=== PATIENT | female | born 1985 | race Caucasian/White ===

== ENCOUNTER 2018-07-01 01:23 | Emergency (ER) | payer SELFPAY ==
[2018-07-01 02:05] LABS: Urine Bacteria <20 /HPF (<20); Urine Culture Reflex Order NOT NEEDED; Urine RBC NONE SEEN /HPF (NONE SEEN)
--- NOTE | 2018-07-01 02:14 | ER ---
Nurse's Notes [facility] Name: Dulce Bird Age: 33 yrs Sex: Female : 1985 Arrival Date: 07/01/2018 Time: 01:25 Bed 20 Private MD: Diagnosis: Vaginitis, vulvitis and vulvovaginitis in diseases classified elsewhere Presentation: 07/01 01:36 Presenting complaint: Patient states: she left a tampon in for possibly two months and bb just took it out states now she has a "pretty bad discharge" and is worried about toxic shock syndrome. Transition of care: patient was not received from another setting of care. Onset of symptoms is unknown. Risk Assessment: Do you want to hurt yourself or someone else? Patient reports no desire to harm self or others. Initial Sepsis Screen: Does the patient meet any 2 criteria? No. Patient's initial sepsis screen is negative. Does the patient have a suspected source of infection? No. Patient's initial sepsis screen is negative. Care prior to arrival: None. 01:36 Method Of Arrival: Ambulatory bb 01:36 Acuity: HEATHER 3 bb Triage Assessment: 02:04 General: Appears in no apparent distress. Behavior is calm, cooperative. Pain: Denies ak1 pain. EENT: No signs and/or symptoms were reported regarding the EENT system. Neuro: No deficits noted. Cardiovascular: No deficits noted. Respiratory: No deficits noted. GI: No signs and/or symptoms were reported involving the gastrointestinal system. : Reports discharge, from vagina that is since today after finding a tampon that has been in the vagina for "2 months" pt refused vaginal/pelvic exam. Derm: No signs and/or symptoms reported regarding the dermatologic system. Musculoskeletal: No signs and/or symptoms reported regarding the musculoskeletal system. 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 - Social history:: Smoking status: Patient uses tobacco products, smokes one-half pack cigarettes per day, Patient uses alcohol, weekly. Patient/guardian denies using street drugs. - Ebola Screening: : No symptoms or risks identified at this time. Screenin:03 Abuse screen: Denies threats or abuse. Denies injuries from another. Nutritional ak1 screening: No deficits noted. Tuberculosis screening: No symptoms or risk factors identified. Fall Risk None identified. Vital Signs: 01:38 BP 133 / 94; Pulse 85; Resp 16 S; Temp 98.8(O); Pulse Ox 100% on R/A; Weight 77.11 kg bb (R); Height 5 ft. 8 in. (172.72 cm) (R); Pain 3/10; 01:38 Body Mass Index 25.85 (77.11 kg, 172.72 cm) bb ED Course: 01:25 Patient arrived in ED. al2 01:31 Eriberto Orantes PA is PHCP. cp 01:31 Calin Raygoza MD is Attending Physician. cp 01:31 Christy Coleman RN is Primary Nurse. ak1 01:37 Triage completed. bb 01:38 Arm band placed on Patient placed in an exam room, on a stretcher, on pulse oximetry. bb 02:03 Patient has correct armband on for positive identification. Bed in low position. Call ak1 light in reach. Side rails up X 1. Pulse ox on. NIBP on. 02:07 No provider procedures requiring assistance completed. ak1 02:11 Urine --Ancillary (enter results) Sent. ds4 02:11 Urine Dipstick--Ancillary (enter results) Sent. ds4 02:12 Mook Ramires MD is Referral Physician. cp 02:20 Patient did not have IV access during this emergency room visit. ak1 Administered Medications: No medications were administered Outcome: 02:13 Discharge ordered by . cp 02:18 Discharged to home ambulatory. ak1 02:18 Condition: good 02:18 Discharge instructions given to patient, Instructed on discharge instructions, follow up and referral plans. no drinking with medication, no driving heavy equipment, medication usage, safe sex practices, control, Demonstrated understanding of instructions, follow-up care, medications, Prescriptions given X 2. 02:22 Patient left the ED. ak1 Signatures: Nhi Nava RN RN bb Vernon Ronquillo ds4 Christy Coleman RN RN ak1 Eriberto Orantes PA PA cp Love, Angelica al2
--- NOTE | 2018-07-01 02:14 | EDPHYS ---
Physician Documentation [facility] Name: Dulce Bird Age: 33 yrs Sex: Female : 1985 Arrival Date: 07/01/2018 Time: 01:25 Bed 20 Private MD: ED Physician Calin Raygoza HPI: 07/01 01:55 This 33 yrs old Female presents to ER via Ambulatory with complaints of TSS. cp 01:55 The patient presents with vaginal discharge, that is a moderate amount of purulent cp discharge. Onset: The symptoms/episode began/occurred gradually. Associated signs and symptoms: Pertinent negatives: constipation, diarrhea, fever, vaginal bleeding, abdominal pain, concern for STD. Severity of symptoms: in the emergency department the symptoms are unchanged, despite home interventions. 01:55 Patient reports removing tampon tonight and is unsure of when it was placed. Patient cp reports tampon was possibly inserted 2 months ago. 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 - Social history:: Smoking status: Patient uses tobacco products, smokes one-half pack cigarettes per day, Patient uses alcohol, weekly. Patient/guardian denies using street drugs. - Ebola Screening: : No symptoms or risks identified at this time. ROS: 02:00 Positive for vaginal discharge, Negative for vaginal bleeding. cp 02:00 Constitutional: Negative for body aches, chills, fever, poor PO intake. 02:00 Cardiovascular: Negative for chest pain, edema, palpitations. cp 02:00 Respiratory: Negative for cough, shortness of breath, wheezing. 02:00 Abdomen/GI: Negative for abdominal pain, nausea, vomiting, and diarrhea, constipation, anorexia, black/tarry stool, rectal bleeding. 02:00 Back: Negative for pain at rest, pain with movement, radiated pain. 02:00 : Negative for urinary symptoms. 02:00 Skin: Negative for cellulitis, rash. 02:00 Neuro: Negative for altered mental status, headache, weakness. 02:00 All other systems are negative. Exam: 02:05 Constitutional: The patient appears in no acute distress, alert, awake, comfortable, cp non-toxic, well developed, well nourished. 02:05 Head/Face: Normocephalic, atraumatic. cp 02:05 Eyes: Periorbital structures: appear normal, Conjunctiva: normal, no exudate, no injection, Sclera: no appreciated abnormality, Lids and lashes: appear normal, bilaterally. 02:05 ENT: External ear(s): are unremarkable, Nose: is normal, Mouth: Lips: moist, Oral mucosa: pink and intact, moist, Posterior pharynx: is normal, airway is patent. 02:05 Chest/axilla: Inspection: normal, Palpation: is normal, no crepitus, no tenderness. 02:05 Cardiovascular: Rate: normal, Rhythm: regular. 02:05 Respiratory: the patient does not display signs of respiratory distress, Respirations: normal, no use of accessory muscles, no retractions, no splinting, no tachypnea, Breath sounds: are clear throughout, no decreased breath sounds, no stridor, no wheezing. 02:05 Abdomen/GI: Inspection: abdomen appears normal, Bowel sounds: active, all quadrants, Palpation: abdomen is soft and non-tender, in all quadrants, rebound tenderness, is not appreciated, voluntary guarding, is not appreciated, involuntary guarding, is not appreciated. 02:05 Back: pain, is absent, ROM is normal, CVA tenderness, is absent. 02:05 : Pelvic Exam: The exam is refused by the patient/guardian. The risks and consequences are understood by the patient. 02:05 Skin: cellulitis, is not appreciated, no rash present. Vital Signs: 01:38 BP 133 / 94; Pulse 85; Resp 16 S; Temp 98.8(O); Pulse Ox 100% on R/A; Weight 77.11 kg bb (R); Height 5 ft. 8 in. (172.72 cm) (R); Pain 3/10; 01:38 Body Mass Index 25.85 (77.11 kg, 172.72 cm) bb MDM: 01:31 Patient medically screened. cp 02:13 Data reviewed: vital signs, nurses notes, lab test result(s), and as a result, I will cp discharge patient. 02:13 Counseling: I had a detailed discussion with the patient and/or guardian regarding: the cp historical points, exam findings, and any diagnostic results supporting the discharge/admit diagnosis, lab results, the need for outpatient follow up, an OB/Gyne specialist, to return to the emergency department if symptoms worsen or persist or if there are any questions or concerns that arise at home. ED course: VSS. Will discharge to home with RX for doxycycline and clindamycin. 07/01 01:52 Order name: Urine Microscopic Only; Complete Time: 02:09 ak1 07/01 02:09 Interpretation: Normal except. cp 07/01 01:53 Order name: Urine Dipstick--Ancillary (enter results) mw2 07/01 01:53 Order name: Urine --Ancillary (enter results) mw2 07/01 01:53 Order name: Urine Dipstick-Ancillary (obtain specimen); Complete Time: 02:03 cp 07/01 01:53 Order name: Urine Test (obtain specimen); Complete Time: 02:03 cp Administered Medications: No medications were administered Disposition: 02:30 Chart complete. cp Disposition: 07/01/18 02:13 Discharged to Home. Impression: Vaginitis, vulvitis and vulvovaginitis in diseases classified elsewhere. - Condition is Stable. - Discharge Instructions: Vaginitis, Vaginal Foreign Body. - Prescriptions for Clindamycin HCl 300 mg Oral Capsule - take 1 capsule by ORAL route every 6 hours for 10 days; 40 capsule. Doxycycline Hyclate 100 mg Oral Tablet - take 1 tablet by ORAL route every 12 hours; 20 tablet. - Medication Reconciliation Form, Thank You Letter, Antibiotic Education, Prescription Opioid Use form. - Follow up: Mook Ramires MD; When: 1 week; Reason: symptoms continue. - Problem is new. - Symptoms are unchanged. Addendum: 07/02/2018 04:31 Co-signature as Attending Physician, Calin Raygoza MD. r n Signatures: Dispatcher [employer] Nhi Yeboah RN RN bb Nieto, Roman, MD MD rn Krenek, Amber, RN RN ak1 Eriberto Orantes PA PA cp Corrections: (The following items were deleted from the chart) 07/01 02:22 02:13 07/01/2018 02:13 Discharged to Home. Impression: Vaginitis, vulvitis and ak1 vulvovaginitis in diseases classified elsewhere. Condition is Stable. Forms are Medication Reconciliation Form, Thank You Letter, Antibiotic Education, Prescription Opioid Use. Follow up: Mook Ramires; When: 1 week; Reason: symptoms continue. Problem is new. Symptoms are unchanged. cp
[2018-07-01 02:30] VITALS: BP 133/94; TEMP 98.8; O2SAT 100
[2018-07-01 03:12] LABS: Urine Blood TRACE (NEG); Urine Glucose NEGATIVE (NEG); Urine Protein NEGATIVE (NEG)
== END 2018-07-01 02:22 | disposition home or self-care (01) ==
LOC: ER 01:23
DX: N77.1 Vaginitis, vulvitis and vulvovaginitis in diseases classified elsewhere (principal); F17.210 Nicotine dependence, cigarettes, uncomplicated
CPT/HCPCS: 81003; 81015; 81025; 99283

== ENCOUNTER 2018-09-07 10:12 | Emergency (ER) | payer SELFPAY ==
--- NOTE | 2018-09-07 11:39 | RAD REPORT ---
EXAM DESCRIPTION: Loren Sommers And Madai (2 Views)09/07/2018 11:20 am CLINICAL HISTORY: Cough COMPARISON: 2016 FINDINGS: The lungs appear clear of acute infiltrate. The heart is normal size. Scoliosis involves the spine IMPRESSION: No acute abnormalities displayed
[2018-09-07] MEDS ORDERED: ACETAMINOPHEN 325 MG TABLET ONE (12:15)
--- NOTE | 2018-09-07 12:29 | ER ---
Nurse's Notes [facility] Name: Dulce Bird Age: 33 yrs Sex: Female : 1985 Arrival Date: 09/07/2018 Time: 10:13 Bed 18 Private MD: None, None Diagnosis: Acute bronchitis Presentation: 09/07 10:37 Presenting complaint: Patient states: Cough for 2 days with achy pain in left upper aj back and chest. Denies fever. Transition of care: patient was not received from another setting of care. Onset of symptoms was September 05, 2018. Risk Assessment: Do you want to hurt yourself or someone else? Patient reports no desire to harm self or others. Initial Sepsis Screen: Does the patient meet any 2 criteria? No. Patient's initial sepsis screen is negative. Does the patient have a suspected source of infection? No. Patient's initial sepsis screen is negative. Care prior to arrival: None. 10:37 Method Of Arrival: Ambulatory aj 10:37 Acuity: HEATHER 3 aj Triage Assessment: 10:39 General: Appears in no apparent distress. comfortable, Behavior is calm, cooperative, aj appropriate for age. Pain: Complains of pain in left scapular area and anterior aspect of left upper chest. EENT: Reports nasal congestion nasal discharge. Neuro: Level of Consciousness is awake, alert, obeys commands, Oriented to person, place, time, situation, Appropriate for age. Respiratory: Reports cough that is pain with cough Airway is patent Respiratory effort is even, unlabored, Respiratory pattern is regular, symmetrical. Derm: Skin is intact, is healthy with good turgor, Skin is pink, warm \T\ dry. normal. 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 - Social history:: Smoking status: Patient uses tobacco products, smokes one-half pack cigarettes per day. - Ebola Screening: : Patient negative for fever greater than or equal to 101.5 degrees Fahrenheit, and additional compatible Ebola Virus Disease symptoms Patient denies exposure to infectious person Patient denies travel to an Ebola-affected area in the 21 days before illness onset No symptoms or risks identified at this time. Screenin:00 Abuse screen: Denies threats or abuse. Nutritional screening: No deficits noted. em Tuberculosis screening: No symptoms or risk factors identified. Fall Risk None identified. Assessment: 11:00 General: Appears in no apparent distress. comfortable, Behavior is calm, cooperative. em Pain: Complains of pain in anterior aspect of left upper chest and left scapular area Pain currently is 7 out of 10 on a pain scale. Quality of pain is described as pressure, sharp. Neuro: Level of Consciousness is awake, alert, obeys commands, Oriented to person, place, time, situation. Cardiovascular: Capillary refill < 3 seconds Patient's skin is warm and dry. Respiratory: Airway is patent Respiratory effort is even, unlabored, Respiratory pattern is regular, symmetrical, Breath sounds are clear bilaterally. GI: Abdomen is flat, Reports nausea, Patient currently denies vomiting. : No signs and/or symptoms were reported regarding the genitourinary system. EENT: Oral mucosa is moist. Throat is clear is pink. Derm: Skin is intact, is healthy with good turgor, Skin is pink, warm \T\ dry. Musculoskeletal: Capillary refill < 3 seconds, Range of motion: intact in all extremities. 11:15 General: The previous assessment is accurate, call light remains within reach. . ss 12:04 Reassessment: Patient appears in no apparent distress at this time. Patient and/or em family updated on plan of care and expected duration. Pain level reassessed. Patient is alert, oriented x 3, equal unlabored respirations, skin warm/dry/pink. pt request something for pain, provider notified, provide ordered medication and EKG, pt currently request not to have the EKG until the results of X-ray, Provider notified, will hold EKG. 12:40 Reassessment: Patient appears in no apparent distress at this time. Patient and/or em family updated on plan of care and expected duration. Pain level reassessed. Patient is alert, oriented x 3, equal unlabored respirations, skin warm/dry/pink. Vital Signs: 10:39 BP 131 / 91; Pulse 99; Resp 20; Temp 98.4; Pulse Ox 100% on R/A; Weight 77.11 kg; aj Height 5 ft. 9 in. (175.26 cm); 11:30 BP 139 / 103; Pulse 85; Resp 18; Pulse Ox 99% on R/A; Pain 7/10; em 12:30 BP 130 / 87; Pulse 83; Resp 16; Pulse Ox 99% on R/A; em 10:39 Body Mass Index 25.10 (77.11 kg, 175.26 cm) aj ED Course: 10:13 Patient arrived in ED. sb2 10:13 None, None is Private Physician. sb2 10:39 Triage completed. aj 10:39 Arm band placed on left wrist. Patient placed in waiting room, Patient notified of wait aj time. Labs ordered per protocol. Drawn by ED staff. X-ray ordered. 10:49 Richard Freire PA is PHCP. [facility] 10:49 Eriberto Collins MD is Attending Physician. [facility] 10:59 Alec Ramirez LVN is Primary Nurse. em 11:00 Patient has correct armband on for positive identification. Placed in gown. Bed in low em position. Call light in reach. 11:17 XRAY Chest Pa And Lat (2 Views) In Process Unspecified. EDMS 12:47 No provider procedures requiring assistance completed. Patient did not have IV access em during this emergency room visit. Administered Medications: 12:12 Drug: Tylenol 650 mg Route: PO; em 12:43 Follow up: Response: No adverse reaction em Outcome: 12:28 Discharge ordered by MD. jmm 12:47 Discharged to home ambulatory. em 12:47 Condition: good 12:47 Discharge instructions given to patient, Instructed on discharge instructions, follow up and referral plans. medication usage, Demonstrated understanding of instructions, follow-up care, medications, Prescriptions given X 3. 12:48 Patient left the ED. em Signatures: Dispatcher [employer] EDAreli Whittington, RN Richard Nettles PA PA jmm Munoz, Edgar, LVN LVN em Loraine Gipson RN RN ss Billeau, Sheri sb2
--- NOTE | 2018-09-07 12:29 | EDPHYS ---
Physician Documentation [facility] Name: Dulce Bidr Age: 33 yrs Sex: Female : 1985 Arrival Date: 09/07/2018 Time: 10:13 Bed 18 Private MD: None, None ED Physician Eriberto Collins HPI: 09/07 11:43 This 33 yrs old Female presents to ER via Ambulatory with complaints of Cough.[facility] 11:43 The patient or guardian reports cough, described as moderate. Onset: The [facility] symptoms/episode began/occurred 1 day(s) ago. This is a 33 year old female with no chronic medical conditions that presents to the ED with 1 week of congestion with cough beginning 1 day ago. patient states having chest pain with cough. patient complains of left upper back pain with cough. denies fever. . 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 - Social history:: Smoking status: Patient uses tobacco products, smokes one-half pack cigarettes per day. - Ebola Screening: : Patient negative for fever greater than or equal to 101.5 degrees Fahrenheit, and additional compatible Ebola Virus Disease symptoms Patient denies exposure to infectious person Patient denies travel to an Ebola-affected area in the 21 days before illness onset No symptoms or risks identified at this time. ROS: 11:43 Eyes: Negative for injury, pain, redness, and discharge. jmm 11:43 Constitutional: Positive for malaise. 11:43 Cardiovascular: Positive for chest pain, with cough. 11:43 Respiratory: Positive for cough. 11:43 All other systems are negative. Exam: 11:43 Head/Face: atraumatic. Eyes: EOMI, no conjunctival erythema appreciated jmm 11:43 Abdomen/GI: Non distended, soft Back: Normal ROM Skin: General appearance color normal MS/ Extremity: Moves all extremities, no obvious deformities appreciated, no edema noted to the lower extremities Neuro: Awake and alert, normal gait Psych: Behavior is normal, Mood is normal, Patient is cooperative and pleasant 11:43 Constitutional: The patient appears in no acute distress, alert, awake. 11:43 ENT: Posterior pharynx: erythema, that is mild. 11:43 Cardiovascular: Rate: normal, Rhythm: regular, Pulses: no pulse deficits are appreciated. 11:43 Respiratory: the patient does not display signs of respiratory distress, Respirations: normal, Breath sounds: are clear throughout. Vital Signs: 10:39 BP 131 / 91; Pulse 99; Resp 20; Temp 98.4; Pulse Ox 100% on R/A; Weight 77.11 kg; aj Height 5 ft. 9 in. (175.26 cm); 11:30 BP 139 / 103; Pulse 85; Resp 18; Pulse Ox 99% on R/A; Pain 7/10; em 12:30 BP 130 / 87; Pulse 83; Resp 16; Pulse Ox 99% on R/A; em 10:39 Body Mass Index 25.10 (77.11 kg, 175.26 cm) aj MDM: 10:51 Patient medically screened. [place] 12:28 Data reviewed: vital signs, nurses notes. Counseling: I had a detailed discussion with [facility] the patient and/or guardian regarding: the historical points, exam findings, and any diagnostic results supporting the discharge/admit diagnosis, radiology results, the need for outpatient follow up, to return to the emergency department if symptoms worsen or persist or if there are any questions or concerns that arise at home. 12:28 Refusal of service: The patient/guardian displays adequate decision making capability [facility] and despite a detailed discussion of alternatives, benefits, risks, and consequences refuses: ekg. 09/07 10:37 Order name: Flu; Complete Time: 11:14 09/07 10:37 Order name: XRAY Chest Pa And Lat (2 Views); Complete Time: 11:40 Administered Medications: 12:12 Drug: Tylenol 650 mg Route: PO; em 12:43 Follow up: Response: No adverse reaction em Disposition: 09/07/18 12:28 Discharged to Home. Impression: Acute bronchitis. - Condition is Stable. - Discharge Instructions: Acute Bronchitis, Adult. - Prescriptions for promethazine- DM - take 5 milliliter by ORAL route every 4-6 hours; 120 milliliter. Prednisone 20 mg Oral Tablet - take 3 tablet by ORAL route once daily for 5 days; 15 tablet. Albuterol Sulfate 90 mcg/actuation - inhale 1-2 puff by INHALATION route every 4-6 hours; 1 Inhaler. - Medication Reconciliation Form, Thank You Letter, Antibiotic Education, Prescription Opioid Use form. - Follow up: Private Physician; When: 2 - 3 days; Reason: Recheck today's complaints, Continuance of care, Re-evaluation by your physician. Addendum: 09/11/2018 10:58 Co-signature as Attending Physician, Eriberto Collins MD I agree with the assessment and c shaffer plan of care. Signatures: Dispatcher [employer] rAeli Martins, RN Eriberto Kim MD MD cha Mickail, Joel, PA PA Alec Solis, GRANULATING BLENDER GRANULATING BLENDER em Corrections: (The following items were deleted from the chart) 09/07 12:43 11:39 EKG - Nurse/Tech ordered. jean-paul em 12:48 12:28 09/07/2018 12:28 Discharged to Home. Impression: Acute bronchitis. Condition is em Stable. Forms are Medication Reconciliation Form, Thank You Letter, Antibiotic Education, Prescription Opioid Use. Follow up: Private Physician; When: 2 - 3 days; Reason: Recheck today's complaints, Continuance of care, Re-evaluation by your physician. jean-paul
[2018-09-07 13:03] VITALS: O2SAT 99
[2018-09-07 13:04] VITALS: BP 130/87
[2018-09-07 13:10] VITALS: TEMP 97.8
== END 2018-09-07 12:48 | disposition home or self-care (01) ==
LOC: ER 10:12
DX: J20.9 Acute bronchitis, unspecified (principal); F17.210 Nicotine dependence, cigarettes, uncomplicated
CPT/HCPCS: 71046; 87804; 99284